=== PATIENT | male | born 2000 | race African-American/Black ===

== ENCOUNTER 2024-01-09 08:49 | Emergency (ER) | payer SELFPAY | END 2024-01-09 11:53 | disposition home or self-care (01) | LOC: MW.ED 08:49 | DX: M25.512 Pain in left shoulder (principal); Z75.8 Other problems related to medical facilities and other health care; W18.40XA Slipping, tripping and stumbling without falling, unspecified, initial encounter; Y93.02 Activity, running | CPT/HCPCS: 73030-26-LT; 73030-LT; 99283 ==